=== PATIENT | male | born 1990 | race Two or more races ===

== ENCOUNTER 2018-09-07 15:38 | Emergency (ER) | payer OTHER ==
[~2018-09-07] VITALS: Ht 165.1 cm; Wt 59.9 kg
[2018-09-07 15:38] VITALS: BP 136/88
[2018-09-07] MEDS ORDERED: IV NS 0.9% 1,000 ML BAG IV ONE (16:00)
[2018-09-07] MEDS ORDERED: LORAZEPAM INJ 2 MG/ML VIAL IV ONE (16:00)
[2018-09-07] MEDS ORDERED: LORAZEPAM INJ 2 MG/ML VIAL ONE (16:23)
== END 2018-09-07 17:26 | disposition home or self-care (01) ==
LOC: ER 15:38
DX: F41.9 Anxiety disorder, unspecified (principal); R00.2 Palpitations; R00.0 Tachycardia, unspecified; F19.10 Other psychoactive substance abuse, uncomplicated; F10.10 Alcohol abuse, uncomplicated; E86.0 Dehydration; Y90.9 Presence of alcohol in blood, level not specified; Z60.2 Problems related to living alone
CPT/HCPCS: 93005; 96361; 96374; 99284; J2060; J7030